=== PATIENT | male | born 1935 | race Caucasian/White ===

== ENCOUNTER 2018-06-11 15:05 | Emergency (ER) | payer MEDICARE ==
[~2018-06-11] VITALS: Ht 180.3 cm; Wt 87.5 kg
--- NOTE | 2018-06-11 15:13 | NUR ---
DR IVERSON AT BEDSIDE
--- NOTE | 2018-06-11 15:13 | NUR ---
BIBRA FOR WITNESSED SYNCOPAL EPISODE IN A [employer] WHILE SITTING DOWN. NO TRAUMA/INJURY. TO ER BED 09, HOOKED TO MONITOR, CHANGED TO GOWN, PROVIDED W WARM BLANKET, AWAITING MD AMADOR.
[2018-06-11] MEDS ORDERED: CARB-93 PO (15:30)
[2018-06-11] MEDS ORDERED: LIOT25TA9 PO (15:30)
[2018-06-11] MEDS ORDERED: IV NS 0.9% 1,000 ML BAG IV ONE ×2 (15:30→21:00)
[2018-06-11] MEDS ORDERED: LEVO112T2 PO (15:30)
[2018-06-11] MEDS ORDERED: ASPI-1169 PO (15:30)
[2018-06-11] MEDS ORDERED: ATEN25TA PO (15:30)
[2018-06-11] MEDS ORDERED: FURO-145 PO (15:30)
[2018-06-11] MEDS ORDERED: CARB-96 PO (15:30)
--- NOTE | 2018-06-11 15:31 | NUR ---
paged nursing sup for bed
--- NOTE | 2018-06-11 15:36 | NUR ---
WHEELED OUT VIA [facility] FOR CT SCAN.
[2018-06-11 15:37] LABS: BASOPHILS # (AUTO) 0.1 /CMM (0.0-0.2); BASOPHILS % (AUTO) 1.1 % (0.0-2.0); EOSINOPHILS % (AUTO) 8.4 % (0.0-6.0); HEMATOCRIT 45 % (39-51); HEMOGLOBIN 15.2 g/dL (13.5-17.5); LYMPHOCYTES # (AUTO) 1.6 /CMM (0.8-4.8); LYMPHOCYTES % (AUTO) 19.6 % (20.0-44.0); MEAN CORPUSCULAR HGB CONC 34 g/dl (31.0-36.0); MEAN CORPUSCULAR VOLUME 94 fL (80-96); MONOCYTES # (AUTO) 0.6 /CMM (0.1-1.30); MONOCYTES % (AUTO) 7.1 % (2.0-12.0); NEUTROPHILS # (AUTO) 5.2 /CMM (1.8-8.9); NEUTROPHILS % (AUTO) 63.8 % (43.0-81.0); PLATELET COUNT (AUTO) 140 /CMM (150-450); RED BLOOD CELL COUNT(AUTO) 4.77 MIL/uL (4.5-6.0); WHITE BLOOD COUNT (AUTO) 8.2 K/uL (4.3-11.0)
[2018-06-11 15:49] LABS: CALCIUM, SERUM 8.4 mg/dL (8.5-10.1); CARBON DIOXIDE 29 mmol/L (21-32); CHLORIDE 109 mmol/L (98-107); CREATININE 1.7 mg/dL (0.6-1.3); GLUCOSE 77 mg/dL (74-106); POTASSIUM 4.3 mmol/L (3.5-5.1); SODIUM SERUM 144 mmol/L (136-145); UREA NITROGEN, BLOOD 30 mg/dL (7-18)
--- NOTE | 2018-06-11 15:55 | NUR ---
CALLED [facility] AT [phone]. DR. JAVED ON-CALL FOR [facility] FOR CALL BACK. PRIMARY NURSE AWARE AND DR. IVERSON AWARE.
[2018-06-11 16:08] LABS: ALANINE AMINOTRANSFERASE 9 U/L (12-78); ALBUMIN 3.2 g/dL (3.4-5.0); ALKALINE PHOSPHATASE 51 U/L (46-116); ASPARTATE AMINOTRANSFERASE 16 U/L (15-37); BILIRUBIN,DIRECT 0.1 mg/dL (0.0-0.2); BILIRUBIN,TOTAL 0.7 mg/dL (0.2-1.0); TOTAL PROTEIN, SERUM 6.4 g/dL (6.4-8.2)
--- NOTE | 2018-06-11 16:11 | NUR ---
CALLED [facility] FOR READS.
--- NOTE | 2018-06-11 16:21 | NUR ---
MATT VILLA Addendum: 06/11/18 at 1621 by KDABBAGHIA MATT JAVED.
--- NOTE | 2018-06-11 16:22 | NUR ---
DOCTOR JAVED CALLED AND SPOKE TO DOCTOR IVERSON.
--- NOTE | 2018-06-11 16:22 | NUR ---
ROOM 326-1
--- NOTE | 2018-06-11 16:50 | NUR ---
REPORT GIVEN TO JERMAN WOOD OF TELE UNIT
--- NOTE | 2018-06-11 16:50 | NUR ---
DR COUGHLIN CALLED AND SPOKE WITH DR IVERSON
--- NOTE | 2018-06-11 17:43 | NUR ---
PT RECIEVED BED AT [address] 4520. NUMBER FOR REPORT . Addendum: 06/11/18 at 1747 by KDABBAGSANDRA RECIEVED BED AT [address] BED 4520 PER TORRI. NUMBER FOR REPORT .
--- NOTE | 2018-06-11 17:50 | NUR ---
DEBBIE CALLED FOR ACLS TRANSPORT TO [facility] ETA 2100 AUTH#[id number]
--- NOTE | 2018-06-11 18:00 | NUR ---
REPORT GIVEN TO TORRI WOOD OF [facility], RECEIVING MD: [email or web address]
--- NOTE | 2018-06-11 19:20 | NUR ---
report given to eloina hernández for cesia
--- NOTE | 2018-06-11 21:17 | NUR ---
CALLED [facility] DUE TO DELAYED ETA. ORIGINAL ETA 2100, CALLED AT 2114 (FOLLOWING 15 MIN DELAY) SPOKE WITH DISPATCHER, STATED AN ADDITIONAL 25 MIN DELAY, NEW ETA 2134. DISPATCHER STATED REASON FOR DELAY IS DUE TO CREW RESTOCKING RIG. ASKED FOR HYDRAULIC PRESS OPERATOR TO BE NOTFIED OF UNEXCEPTABLE DELAY.
--- NOTE | 2018-06-11 21:51 | NUR ---
REPORT GIVEN TO EMT FOR PT TRANSFER TO [facility] FOR [place], WITH ONGOING IV NS.
[2018-06-11 22:00] VITALS: BP 145/91
== END 2018-06-11 22:01 | disposition short-term general hospital (02) ==
LOC: ER 15:10
DX: R55 Syncope and collapse (principal); I10 Essential (primary) hypertension; E86.0 Dehydration; G20 Parkinson's disease; F02.80 Dementia in other diseases classified elsewhere, unspecified severity, without behavioral disturbance, psychotic disturbance, mood disturbance, and anxiety; Z88.0 Allergy status to penicillin; Z60.2 Problems related to living alone; Z79.82 Long term (current) use of aspirin
CPT/HCPCS: 36415; 70450; 71045; 80048; 80076; 83605 ×2; 83880; 84484; 85025; 85730; 87040 ×2; 93005; 96360; 96361; 99285; J7030 ×2